=== PATIENT | female | born 1945 | race Caucasian/White ===

== ENCOUNTER 2017-02-05 00:20 | Inpatient (IN) | payer MEDICARE, OTHER ==
[~2017-02-05] VITALS: Ht 162.6 cm; Wt 73.0 kg
[2017-02-05 01:00] VITALS: BP 124/78
[2017-02-05] MEDS ORDERED: TEMAZEPAM 7.5 MG CAPSULE PO PRN (01:30)
[2017-02-05] MEDS ORDERED: MAGNESIUM HYDROXIDE 30 ML UDC PO PRN (01:30)
[2017-02-05] MEDS ORDERED: ACETAMINOPHEN 325 MG TABLET PO PRN (01:30)
[2017-02-05] MEDS ORDERED: MAG HYDROX/AL HYDROX/SIMETH 30 ML UDC PO PRN (01:30)
[2017-02-05 07:00] LABS: CHOLESTEROL 177 mg/dL (<200); HDL CHOLESTEROL 32 mg/dL (40-60); LDL 118 mg/dL (0-99); TRIGLYCERIDES 154 mg/dL (30-150)
[2017-02-05] MEDS: LORAZEPAM 0.5 MG TABLET PO PRN ×2 (07:51→15:45)
[2017-02-05 08:29] VITALS: BP 122/73
[2017-02-05] MEDS ORDERED: CLON1PAT13 TD (13:11)
[2017-02-05] MEDS ORDERED: ATEN50TA PO (13:11)
[2017-02-05] MEDS ORDERED: ASPI-605 PO (13:11)
[2017-02-05] MEDS ORDERED: LACO50TA2 PO (13:11)
[2017-02-05] MEDS ORDERED: PRAV80TA21 PO (13:11)
[2017-02-05] MEDS ORDERED: AMLO10TA2 PO (13:11)
[2017-02-05] MEDS ORDERED: VALS320T2 PO (13:11)
[2017-02-05] MEDS ORDERED: TRIA1CAP6 PO (13:11)
[2017-02-05] MEDS ORDERED: FOLI1TAB16 PO (13:23)
[2017-02-05] MEDS ORDERED: CHOL200026 PO (13:29)
[2017-02-05] MEDS ORDERED: CALC-838 PO (14:51)
[2017-02-05 15:57] VITALS: BP 113/63
[2017-02-05] MEDS: PAROXETINE HCL 10 MG TABLET PO SCH (18:53)
[2017-02-05 20:00] VITALS: BP 106/61
[2017-02-05] MEDS ORDERED: CLONIDINE HCL 0.2MG/24H PTWK 1 EA PATCH TD SCH (20:00)
[2017-02-05] MEDS: MIRTAZAPINE 15 MG TABLET PO SCH (21:56)
[2017-02-06 07:06] LABS: BASOPHILS % (AUTO) 0.4 % (0.0-2.0); EOSINOPHILS # (AUTO) 0.2 /CMM (0.0-0.7); EOSINOPHILS % (AUTO) 3.9 % (0.0-6.0); HEMATOCRIT 39 % (33-45); HEMOGLOBIN 13.1 g/dL (11.5-14.8); LYMPHOCYTES % (AUTO) 38.5 % (20.0-44.0); MEAN CORPUSCULAR HEMOGLOBIN 35 PG (26.0-33.0); MEAN CORPUSCULAR HGB CONC 34 g/dl (31.0-36.0); MEAN CORPUSCULAR VOLUME 102 fL (82-100); MONOCYTES # (AUTO) 0.3 /CMM (0.1-1.30); MONOCYTES % (AUTO) 6.1 % (2.0-12.0); NEUTROPHILS # (AUTO) 2.6 /CMM (1.8-8.9); NEUTROPHILS % (AUTO) 51.1 % (43.0-81.0); PLATELET COUNT (AUTO) 166 /CMM (150-450); RDW COEFFICIENT OF VARIATION 13.3 (11.5-15.0); RED BLOOD CELL COUNT(AUTO) 3.78 MIL/uL (4.0-5.2); WHITE BLOOD COUNT (AUTO) 5.1 K/uL (4.3-11.0)
[2017-02-06 07:32] LABS: ALBUMIN 3.7 g/dL (3.4-5.0); BILIRUBIN,TOTAL 0.4 mg/dL (0.2-1.0); CALCIUM, SERUM 9.3 mg/dL (8.5-10.1); CREATININE 1.2 mg/dL (0.6-1.3); MAGNESIUM 2.2 mg/dL (1.8-2.4); PHOSPHORUS 3.4 mg/dL (2.5-4.9); POTASSIUM 3.8 mmol/L (3.5-5.1); TOTAL PROTEIN, SERUM 6.8 g/dL (6.4-8.2)
[2017-02-06] MEDS: ASPIRIN EC 81 MG TABLET.DR PO SCH (08:28)
[2017-02-06 08:29] VITALS: BP 126/62
[2017-02-06] MEDS: CALCIUM CARB 600MG /VIT D 1 EACH TABLET PO SCH (08:29)
[2017-02-06] MEDS: FOLIC ACID 1 MG TABLET PO SCH (08:30)
[2017-02-06] MEDS: TRIAMTERENE/HYDROCHLOROTHIAZID (37.5/25MG) 1 UDCAP PO SCH (08:30)
[2017-02-06] MEDS: AMLODIPINE BESYLATE 10 MG TABLET PO SCH (08:31)
[2017-02-06] MEDS: PAROXETINE HCL 10 MG TABLET PO SCH (08:31)
[2017-02-06] MEDS: ATORVASTATIN 10 MG TABLET PO SCH (08:31)
[2017-02-06] MEDS: CHOLECALCIFEROL 1,000 UNIT TABLET (VIT D3) PO SCH (08:32)
[2017-02-06] MEDS: LACOSAMIDE 50 MG TABLET PO SCH ×2 (08:32→17:19)
[2017-02-06] MEDS: ATENOLOL 50 MG TABLET PO SCH (08:38)
[2017-02-06] MEDS: VALSARTAN 80 MG TABLET PO SCH (08:39)
[2017-02-06 15:42] VITALS: BP 120/60
[2017-02-06] MEDS ORDERED: PAROXETINE HCL 10 MG TABLET PO ONE (16:30)
[2017-02-06 20:06] VITALS: BP 142/83
[2017-02-06] MEDS: MIRTAZAPINE 15 MG TABLET PO SCH (21:51)
[2017-02-07] MEDS: ASPIRIN EC 81 MG TABLET.DR PO SCH (08:15)
[2017-02-07] MEDS: CALCIUM CARB 600MG /VIT D 1 EACH TABLET PO SCH (08:15)
[2017-02-07] MEDS: TRIAMTERENE/HYDROCHLOROTHIAZID (37.5/25MG) 1 UDCAP PO SCH (08:16)
[2017-02-07] MEDS: VALSARTAN 80 MG TABLET PO SCH (08:16)
[2017-02-07] MEDS: AMLODIPINE BESYLATE 10 MG TABLET PO SCH (08:17)
[2017-02-07] MEDS: ATORVASTATIN 10 MG TABLET PO SCH (08:17)
[2017-02-07] MEDS: FOLIC ACID 1 MG TABLET PO SCH (08:17)
[2017-02-07] MEDS: LACOSAMIDE 50 MG TABLET PO SCH ×2 (08:18→16:04)
[2017-02-07] MEDS: ATENOLOL 50 MG TABLET PO SCH (08:18)
[2017-02-07] MEDS: CHOLECALCIFEROL 1,000 UNIT TABLET (VIT D3) PO SCH (08:19)
[2017-02-07] MEDS ORDERED: PAROXETINE HCL 20 MG TABLET PO SCH (09:00)
[2017-02-07] MEDS: LORAZEPAM 0.5 MG TABLET PO PRN (15:43)
[2017-02-07 16:00] VITALS: BP 161/84
[2017-02-07] MEDS ORDERED: PAROXETINE HCL 10 MG TABLET PO ONE ×2 (17:00)
[2017-02-07 20:15] VITALS: BP 100/68
[2017-02-07] MEDS: MIRTAZAPINE 15 MG TABLET PO SCH (21:03)
[2017-02-08 08:00] VITALS: BP 135/78
[2017-02-08] MEDS: VALSARTAN 80 MG TABLET PO SCH (08:19)
[2017-02-08] MEDS: ASPIRIN EC 81 MG TABLET.DR PO SCH (08:19)
[2017-02-08] MEDS: CALCIUM CARB 600MG /VIT D 1 EACH TABLET PO SCH (08:19)
[2017-02-08] MEDS: TRIAMTERENE/HYDROCHLOROTHIAZID (37.5/25MG) 1 UDCAP PO SCH (08:20)
[2017-02-08] MEDS: FOLIC ACID 1 MG TABLET PO SCH (08:20)
[2017-02-08] MEDS: AMLODIPINE BESYLATE 10 MG TABLET PO SCH (08:21)
[2017-02-08] MEDS: PAROXETINE HCL 20 MG TABLET PO SCH (08:22)
[2017-02-08] MEDS: ATENOLOL 50 MG TABLET PO SCH (08:22)
[2017-02-08] MEDS: LACOSAMIDE 50 MG TABLET PO SCH ×2 (08:23→17:00)
[2017-02-08] MEDS: CHOLECALCIFEROL 1,000 UNIT TABLET (VIT D3) PO SCH (08:23)
[2017-02-08] MEDS: ATORVASTATIN 10 MG TABLET PO SCH (09:42)
[2017-02-08 16:00] VITALS: BP 109/63
[2017-02-08 20:36] VITALS: BP 113/73
[2017-02-08] MEDS: MIRTAZAPINE 15 MG TABLET PO SCH (21:27)
[2017-02-09 08:00] VITALS: BP 190/84
[2017-02-09] MEDS: FOLIC ACID 1 MG TABLET PO SCH (08:37)
[2017-02-09] MEDS: LACOSAMIDE 50 MG TABLET PO SCH ×2 (08:37→17:34)
[2017-02-09] MEDS: PAROXETINE HCL 20 MG TABLET PO SCH (08:38)
[2017-02-09] MEDS: CHOLECALCIFEROL 1,000 UNIT TABLET (VIT D3) PO SCH (08:38)
[2017-02-09] MEDS: VALSARTAN 80 MG TABLET PO SCH (08:39)
[2017-02-09] MEDS: ATENOLOL 50 MG TABLET PO SCH (08:39)
[2017-02-09] MEDS: CALCIUM CARB 600MG /VIT D 1 EACH TABLET PO SCH (08:39)
[2017-02-09] MEDS: ASPIRIN EC 81 MG TABLET.DR PO SCH (08:39)
[2017-02-09] MEDS: AMLODIPINE BESYLATE 10 MG TABLET PO SCH (08:40)
[2017-02-09] MEDS: ATORVASTATIN 10 MG TABLET PO SCH (08:40)
[2017-02-09] MEDS: TRIAMTERENE/HYDROCHLOROTHIAZID (37.5/25MG) 1 UDCAP PO SCH (09:02)
[2017-02-09 09:33] VITALS: BP 111/58
[2017-02-09 16:00] VITALS: BP 129/83
[2017-02-09 20:00] VITALS: BP 124/74
[2017-02-09 20:01] VITALS: BP 124/74
[2017-02-09] MEDS: MIRTAZAPINE 15 MG TABLET PO SCH (21:50)
[2017-02-10 08:28] VITALS: BP 148/75
[2017-02-10] MEDS: CALCIUM CARB 600MG /VIT D 1 EACH TABLET PO SCH (08:28)
[2017-02-10] MEDS: ATENOLOL 50 MG TABLET PO SCH (08:28)
[2017-02-10] MEDS: AMLODIPINE BESYLATE 10 MG TABLET PO SCH (08:28)
[2017-02-10] MEDS: FOLIC ACID 1 MG TABLET PO SCH (08:29)
[2017-02-10] MEDS: TRIAMTERENE/HYDROCHLOROTHIAZID (37.5/25MG) 1 UDCAP PO SCH (08:29)
[2017-02-10 08:30] VITALS: BP 148/75
[2017-02-10] MEDS: LACOSAMIDE 50 MG TABLET PO SCH (08:30)
[2017-02-10] MEDS: VALSARTAN 80 MG TABLET PO SCH (08:30)
[2017-02-10] MEDS: CHOLECALCIFEROL 1,000 UNIT TABLET (VIT D3) PO SCH (08:31)
[2017-02-10] MEDS ORDERED: PAROXETINE HCL 20 MG TABLET PO SCH (11:06)
[2017-02-10] MEDS ORDERED: ATORVASTATIN 10 MG TABLET PO SCH (11:06)
[2017-02-11] MEDS ORDERED: ASPIRIN EC 81 MG TABLET.DR PO SCH (09:00)
== END 2017-02-10 12:10 | disposition home or self-care (01) | DRG 885 ==
LOC: GPS 00:53
PROVIDERS: ADMIT Psychiatry & Neurology Psychosomatic Medicine; ATTEND Nurse Practitioner Acute Care
DX: F32.3 Major depressive disorder, single episode, severe with psychotic features (principal); F23 Brief psychotic disorder; E78.5 Hyperlipidemia, unspecified; E55.9 Vitamin D deficiency, unspecified; G40.909 Epilepsy, unspecified, not intractable, without status epilepticus; I10 Essential (primary) hypertension; Z85.528 Personal history of other malignant neoplasm of kidney; Z87.891 Personal history of nicotine dependence; Z82.3 Family history of stroke; Z73.6 Limitation of activities due to disability
CPT/HCPCS: 36415; 80053-TC; 80061-TC; 83735-TC; 84100-TC; 85025-TC; 87081-TC